=== PATIENT | female | born 1990 | race Two or more races ===

== ENCOUNTER 2018-07-30 19:59 | Emergency (ER) | payer OTHER ==
[~2018-07-30] VITALS: Ht 160 cm; Wt 81.6 kg
[2018-07-30] MEDS ORDERED: Mylanta II UD 30ml ORAL ONE (20:30)
[2018-07-30] MEDS ORDERED: Dicyclomine HCl 10mg/5ml oral soln ORAL ONE (20:30)
[2018-07-30] MEDS ORDERED: Lidocaine 2% Visc 15ml soln ORAL ONE (20:30)
[2018-07-30] MEDS ORDERED: RANITIDINE HCL150 MG ORAL (20:52)
[2018-07-30] MEDS ORDERED: ONDANSETRON ODT4 MG BC (20:52)
[2018-07-30] MEDS ORDERED: DICYCLOMINE HCL10 MG PO (20:52)
[2018-07-30 20:55] VITALS: BP 115/75
--- NOTE | 2018-07-31 00:01 | Emergency Room Report ---
History of Present Illness General Chief Complaint: Nausea, Vomiting, and Diarrhea Source: Patient Present Illness Allergies: Coded Allergies: No Known Allergies (Unverified , 07/30/18) Patient History Last Menstrual Period: 07/07/18 Now: No : 0 Para: 0 Nursing Documentation-[facility] [place] Past Medical History: No Stated History Physical Exam Vital Signs Date Time Temp Pulse Resp B/P (MAP) Pulse Ox O2 Delivery O2 Flow Rate FiO2 07/30/18 20:10 97.3 104 16 137/89 96 Room Air Medical Decision Making Diagnostic Impression: Primary Impression: Gastroenteritis Last Vital Signs Date Time Temp Pulse Resp B/P (MAP) Pulse Ox O2 Delivery O2 Flow Rate FiO2 07/30/18 20:10 97.3 104 16 137/89 96 Room Air Disposition: HOME, SELF-CARE Condition: Stable Scripts Ranitidine Hcl* (ZANTAC*) 150 Mg Tablet 150 MG ORAL TWICE A DAY, #30 TAB Prov: Jose Lopez MD 07/30/18 Dicyclomine Hcl* (DICYCLOMINE HCL*) 10 Mg Capsule 10 MG PO QID for 5 Days, CAP Prov: Jose Lopez MD 07/30/18 Ondansetron Odt* (ZOFRAN ODT*) 4 Mg Tab.rapdis 4 MG BC EVERY 6 HOURS PRN for Nausea & Vomiting, #20 TAB 0 Refills Prov: Jose Lopez MD 07/30/18 Referrals: APARNA FERREIRA,REFERRING (PCP) Patient Instructions: Viral Gastroenteritis, Adult, [id number] Jose Lopez MD Jul 31, 2018 00:01
== END 2018-07-30 20:56 | disposition home or self-care (01) ==
LOC: EMR 20:34
DX: K52.9 Noninfective gastroenteritis and colitis, unspecified (principal)
CPT/HCPCS: 96372; 99283; J2405